=== PATIENT | female | born 2000 | race African-American/Black ===

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

== ENCOUNTER 2024-08-16 13:25 | Emergency (ER) | payer SELFPAY ==
[~2024-08-16] VITALS: Ht 165.1 cm; Wt 118.0 kg
[~2024-08-16 13:25] MED LIST changes: +CEPHALEXIN500 MG PO; +ROBITUSSIN AC10 ML PO
[2024-08-16 14:10] LABS: BASO% 0.3 % (0-3); EOS% 3.1 % (0-8); HEMOGLOBIN 13.2 g/dl (12.0-16.0); IMMATURE GRANULOCYTES 0.2 % (0.0-5.0); LYMPH% 50.6 % (15-41); MEAN CELL VOLUME 84.4 fL CALC (80.0-100.0); MEAN CORPUSCULAR HGB 26.7 pG CALC (26.0-32.0); MEAN CORPUSCULAR HGB CONC 31.7 g/dL CAL (32.0-36.0); MONO% 6.7 % (2-13); NEUT# 4.34 thou/uL (2.00-7.15); NEUT% 39.1 % (42-76); RED BLOOD COUNT 4.94 mill/uL (4.20-5.60); RED CELL DISTRI WIDTH 16.4 % (11.5-15.5)
[2024-08-16 14:15] LABS: HEMATOCRIT 41.7 % (37.0-47.0)
[2024-08-16] MEDS ORDERED: SODIUM CHLORIDE 0.9% 1,000 ML IV STA (14:22)
[2024-08-16] MEDS ORDERED: ACETAMINOPHEN 1,000 MG/100 ML VIAL IV ONE (14:25)
[2024-08-16 14:27] LABS: ALBUMIN 4.5 g/dL (3.2-5.0); BILIRUBIN, TOTAL 0.8 mg/dL (0.02-1.3); CREATININE 0.8 mg/dL (0.5-1.0); POTASSIUM 4.1 mmol/l (3.5-5.1)
[2024-08-16 14:55] VITALS: BP 157/105
[2024-08-16 15:00] VITALS: BP 166/97
[2024-08-16 15:58] LABS: URINE BILIRUBIN - DIPSTICK Negative (NEGATIVE); URINE BLOOD DIPSTICK Negative (NEGATIVE); URINE COLOR Yellow; URINE GLUCOSE - DIPSTICK Negative (NEGATIVE); URINE KETONE Trace mg/dL (NEGATIVE); URINE LEUK ESTERASE Negative (NEGATIVE); URINE NITRITE - DIPSTICK Negative (Negative); URINE PH 7.5 (4.5-8.0); URINE PROTEIN - DIPSTICK 100 mg/dL (NEG-TRACE); URINE SPECIFIC GRAVITY 1.025
[2024-08-16 15:59] LABS: URINE AMORPH SEDIMENT MANY hpf (NONE-FEW)
[2024-08-16 16:00] VITALS: BP 164/112
[2024-08-16 16:00] LABS: URINE RBC 0-2 RBC/hpf (0-5); URINE SQUAMOUS EPITHELIAL CELL FEW EPI/hpf (0-FEW)
[2024-08-16 16:30] VITALS: BP 153/110
[2024-08-16] MEDS ORDERED: KETOROLAC TROMETHAMINE 15 MG/ML SDV IV ONE (17:05)
[2024-08-16 18:22] VITALS: BP 153/110
[2024-08-16] MEDS ORDERED: DICYCLOMINE HCL20 MG PO (18:25)
[2024-08-16] MEDS ORDERED: PROTONIX40 M2 PO (18:25)
[2024-08-16] MEDS ORDERED: ZOFRAN4 MG/TAB PO (18:25)
== END 2024-08-16 18:30 | disposition home or self-care (01) | DRG 392 ==
LOC: ED 13:25
PROVIDERS: Family Medicine
DX: R10.84 Generalized abdominal pain (principal); Z87.440 Personal history of urinary (tract) infections
CPT/HCPCS: J0131; J1885; Q9967